=== PATIENT | female | born 1965 | race Caucasian/White ===

== ENCOUNTER 2016-10-21 06:41 | Day surgery (SDC) | payer SELFPAY ==
[2016-10-03 18:08] VITALS: BMI 26.6
[2016-10-21] MEDS ORDERED: BUPIVACAINE HCL/PF 2.5 MG/ML - 30 ML VIAL IJ ONE (07:12)
[2016-10-21] MEDS ORDERED: LIDOCAINE HCL 1%, 10 MG/ML (20ML VIAL) ONE (07:12)
[2016-10-21] MEDS ORDERED: ROCURONIUM BROMIDE 50 MG/5 ML VIAL ONE (07:32)
[2016-10-21] MEDS ORDERED: PROPOFOL 20 ML ONE ×10 (07:32→11:00)
[2016-10-21] MEDS ORDERED: MIDAZOLAM HCL 2 MG/2 ML SINGLE DOSE VIAL ONE ×2 (07:32→09:10)
[2016-10-21] MEDS ORDERED: LIDOCAINE HCL/PF 2% SDV 5ML VIAL ONE (07:33)
[2016-10-21 08:00] LABS: INR 1.02 (0.82-1.09); PROTHROMBIN TIME (PATIENT) 11.4 SEC (10.2-13.0)
[2016-10-21] MEDS ORDERED: DEXAMETHASONE SOD PHOSPHATE 4 MG/1 ML VIAL ONE (08:01)
[2016-10-21] MEDS ORDERED: ONDANSETRON 4 MG/2 ML VIAL ONE (08:01)
[2016-10-21] MEDS ORDERED: HEPARIN NA (PORCINE) 5,000 UNITS/ML 1ML VIAL ONE (08:19)
[2016-10-21] MEDS ORDERED: HEPARIN NA (PORCINE) 5,000 UNITS/ML 1ML VIAL SQ ONE (08:22)
[2016-10-21] MEDS ORDERED: ceFAZolin SODIUM 1 GM VIAL ONE ×2 (08:22→08:23)
[2016-10-21] MEDS ORDERED: KETAMINE HCL 200 MG/20 ML VIAL ONE (09:00)
[2016-10-21] MEDS ORDERED: NITROGLYCERIN 2% OINTMENT - 1GM PACKET TD ONE (11:06)
[2016-10-21] MEDS ORDERED: morphine CARPU-JECT 10 MG/1 ML DISP.SYRIN IVPUSH PRN (11:33)
[2016-10-21] MEDS ORDERED: ONDANSETRON 4 MG/2 ML VIAL IVPB PRN (11:33)
[2016-10-21] MEDS ORDERED: PROMETHAZINE HCL 25 MG/1 ML VIAL IVPUSH PRN (11:36)
[2016-10-21] MEDS ORDERED: HYDROmorphone HCL CARPU-JECT 1 MG/1 ML DISP.SYRIN IVPUSH PRN (11:36)
[2016-10-21] MEDS ORDERED: HYDROmorphone HCL CARPU-JECT 1 MG/1 ML DISP.SYRIN IVPUSH ONE ×3 (11:39→12:10)
--- NOTE | 2016-10-21 11:39 | OP ---
Operative Note - Note: Operative Date: 10/21/16 Pre-Operative Diagnosis: lipodystrophy Operation: mini-abdominoplasty with abdominal liposuction Findings: none Implants: none Post-Operative Diagnosis: Same as Pre-op Surgeon: Jona Estes Anesthesia: General Specimens Removed: fat and skin Estimated Blood Loss (mls): 200 Drains & Tubes with Location: TIERA x 1 Operative Report Dictated: Yes
[2016-10-21] MEDS ORDERED: LACTATED RINGERS SOLUTION 1,000 ML IV SCH ×3 (11:45→19:30)
[2016-10-21] MEDS ORDERED: HYDROmorphone HCL CARPU-JECT 1 MG/1 ML DISP.SYRIN ONE (12:12)
[2016-10-21] MEDS ORDERED: morphine CARPU-JECT 4 MG/1 ML DISP.SYRIN IVPUSH PRN (12:12)
[2016-10-21 15:40] LABS: MCH 29.9 pg (25.7-33.7); MCHC 34.4 g/dl (32.0-36.0); MEAN PLT VOLUME 7.9 fl (7.5-11.1); PLATELET COUNT 202 K/MM3 (134-434); WHITE BLOOD COUNT 10.8 K/mm3 (4.0-10.8)
--- NOTE | 2016-10-21 16:33 | ED.PROV ---
Physicial Exam I saw and examined the patient. - Vital Signs Last Vital Signs Temp Pulse Resp BP Pulse Ox 98.1 F 80 16 126/66 97 10/21/16 16:21 10/21/16 16:21 10/21/16 16:21 10/21/16 16:21 10/21/16 15:30 10/21/16 16:30 - Physical Exam Reason for Response: 10/21/16 16:30 51 yo F s/p abdominoplasty and lipsuction, few hours post op, had near syncopal vagal episode after getting [facility] to go to the bathroom. pt becam pale , lightheaded, was lied back into bed rapid response called. on my arrival. pt was awake, alert lying in bed talking. no acute distress, moveing all ext. General Appearance: Yes: Nourished, Age Appropriate HEENT: positive: Normal Voice Vascular Pulses: Dorsalis-Pedis (R): 2+, Doralis-Pedis (L): 2+ Musculoskeletal: positive: Normal Inspection Extremity: positive: Normal Capillary Refill Integumentary: positive: Normal Color, Dry, Warm, Other (bandages post op in place, not removed.) Neurologic: positive: Fully Oriented, Alert, Normal Mood/Affect, Other (moving all four ext.) Critical Care Time/MDM Note - Medical Decision Making Note: 10/21/16 16:32 51 s/p abdminoplasty with vagal espisode now awake and alert post lying down. plan hydration. will update dr. winchester. iv hydration. likley secondary to preop dehydration. vitals normallizing. dr winchester informed, will return to evaluate pt later today.
[2016-10-21] MEDS: oxyCODONE HCL 5 MG TABLET PO PRN ×2 (17:36→21:48)
[2016-10-21] MEDS: CEFAZOLIN 1 GM/D5W 50 ML IVPB SCH (17:37)
[2016-10-21] MEDS ORDERED: SODIUM CHLORIDE 1,000 ML IV SCH ×2 (19:00→19:23)
--- NOTE | 2016-10-21 19:35 | PN ---
Progress Note (short form) - Note Progress Note: Post op check, Had a faint episode while standing earlier. Evaluated by ER MD diagnosed as vagal episode. Urinating, ambulating, SCD's on and using IS. Patient is afebrile without tachycardia or hypotension. Exam: no hematoma or palpable or visual collection. Dressings are all dry and clean, no visible bruising. TIERA output has been about 100/hour of red liquid slightly thinner than blood. All tissues are pink and viable, non-tense. Patient appears non-toxic with good color, comfortable. HCT 35 Assessment: I do expect very high drainage given the amount of liposuction. Thee is not clinically an active bleed as this would not be entirely drained by the TIERA and would leave some clinical evidence on exam. Due to high TIERA output, however, we will type and screen, and keep NPO for OR if needed should drainage increase or other evidence of bleeding presents. new HCT now and in AM. Bolus saline and maintain on 125 LR overnight. OOB ambulate with assistance.
[2016-10-21 20:05] LABS: MCH 31.8 pg (25.7-33.7); MCHC 35.6 g/dl (32.0-36.0); MEAN CELL VOLUME 89.3 fl (80-96); MEAN PLT VOLUME 8.1 fl (7.5-11.1); PLATELET COUNT 207 K/MM3 (134-434); RDW 11.7 % (11.6-15.6); WHITE BLOOD COUNT 10.7 K/mm3 (4.0-10.8)
[2016-10-21 20:22] LABS: ANION GAP 7 (8-16); CALCIUM 8.3 mg/dl (8.4-10.2); CO2 24 mmol/L (22-28); COCKROFT - GAULT NT; CREATININE 0.7 mg/dl (0.6-1.3); GLUCOSE,RANDOM 178 mg/dl (74-106)
[2016-10-22] MEDS: CEFAZOLIN 1 GM/D5W 50 ML IVPB SCH (01:37)
[2016-10-22 03:53] LABS: MCH 30.3 pg (25.7-33.7); MCHC 33.3 g/dl (32.0-36.0); MEAN CELL VOLUME 91.1 fl (80-96); MEAN PLT VOLUME 8.1 fl (7.5-11.1); PLATELET COUNT 186 K/MM3 (134-434); RDW 12.6 % (11.6-15.6); WHITE BLOOD COUNT 6.3 K/mm3 (4.0-10.0)
[2016-10-22 04:28] LABS: COCKROFT - GAULT 130.441; CREATININE 0.6 mg/dL (0.55-1.02)
[2016-10-22] MEDS: oxyCODONE HCL 5 MG TABLET PO PRN (06:18)
[2016-10-22 06:45] VITALS: BP 119/64; PULSE 91; TEMP 98.6
--- NOTE | 2016-10-22 07:22 | PN ---
Progress Note (short form) - Note Progress Note: Re-evaluated this morning, Subjectively feels good, no pain lightheadedness, weakness. Ambulating, urinating VSS AF, no tachycardia Exam without collection or bleed. abdomen soft and all tissues viable HCT stable, changes are c/w expected dilution along with similar dilution of all other elements of cbc. TIERA output lowered to 60 overnight, now thin serosanguinous OK to feed and discharge in the care of who is a surgeon. All instructions reviewed and pt to start iron. f/u 5 days or sooner PRN.
[2016-10-22] MEDS ORDERED: HEPARIN NA (PORCINE) 5,000 UNITS/ML 1ML VIAL SQ SCH (08:00)
--- NOTE | 2016-10-22 08:29 | PATH ---
Surgical Pathology Report Patient Name: EZRA MENDEZ Med. Rec. #: [id number] /Age/Gender: 1965 (Age: 51) / F Account: [id number] Location: ON LICENSE OF [facility] MED-SURG Taken: 10/21/2016 Received: 10/21/2016 Reported: 10/22/2016 Physicians: Jona Estes Specimen(s) Received ABDOMINAL SKIN AND TISSUE Clinical History Cosmetic Final Diagnosis SKIN AND SOFT TISSUE, ABDOMEN, ABDOMINOPLASTY: UNREMARKABLE SKIN AND SUBCUTANEOUS ADIPOSE TISSUE (GROSS ONLY). Electronically Signed Amador Kwok M.D. Gross Description Received in formalin labeled "abdominal skin and tissue," is an 887 g, 31.0 x 17.5 x 3.0 cm aggregate of 2 martell, triangular, unremarkable portions of skin with underlying soft tissue. No discrete lesions are identified. No sections are submitted, gross only. /10/21/2016 saudi/10/21/2016
--- NOTE | 2016-10-22 10:42 | OP ---
DATE OF OPERATION: 10/21/2016 ATTENDING SURGEON: Jona Estes MD TITLE OF PROCEDURE: Mini abdominoplasty with abdominal and flank liposuction. PREOPERATIVE DIAGNOSIS: Lipodystrophy to the abdomen. POSTOPERATIVE DIAGNOSIS: Lipodystrophy to the abdomen. DESCRIPTION OF PROCEDURE: The patient was marked in the holding area, awake and aware of incisions and resulting scars. Risks, benefits, and alternatives of the procedure including tissue/skin loss were discussed, and patient understands and agrees to proceed. Then, 5000 units of subcutaneous heparin were given. Sequential compression stockings with ANNA MARIE hose were applied. She was then brought to the operating room, placed in the supine position. Position was carefully checked by surgical and anesthesia teams. All appropriate padding devices were used. Sequential compression stockings were turned on. A pillow was placed below the knees. She was then given 2 g of Ancef preoperatively, prepped and draped in standard surgical fashion. A time-out was called. Patient, procedure, incision sites were verified. Infiltration was begun. The wetting solution in this case was for the first 2 L, 1 L of normal saline, 1 ampule 1:1000 epinephrine and 20 mL of 1% lidocaine plain for the second 2 L, it is 1 L of normal saline and 1 ampule epinephrine alone. This was infiltrated slowly over the course of 15 minutes to the areas of prepared plan for liposuction, which were the bilateral flanks and abdomen excluding the region of the lower abdomen, which was intended to be removed. That region in the lower abdomen was used for access to the liposuction. A full 20 minutes was awaited prior to attempting liposuction. At this point, the inferior border of the resection pattern was then incised, and dissection carried down to the level of the loose areolar plane superficial to the abdominal wall fascia. Dissection was continued along the abdominal wall fascia for only several centimeters, where then, discontinuous undermining was then performed. Hemostasis was meticulously achieved. After which, the skin was then tailor-tacked with gen. Attention was directed towards liposuction. Liposuction was performed in a deep plane with a 5-mm cannula and a more superficial plane with a 4-mm cannula. Liposuction was performed in the SAFE technique with pre- and post-tunneling. After pre-tunneling, liposuction was performed. The total lipoaspirate for the case was 4400 mL. The specific areas of lipoaspiration were 850 mL off of the left flank, 950 mL off of the right flank, 1300 mL off of the left side of the abdomen, and 1300 mL off of the right side of the abdomen. The weight of the skin resection is 840 g. After conclusion of liposuction, the end-point was the appearance of bloody fluid within the solution and smooth even contour being achieved. At this point, attention was redirected towards the abdominoplasty where a small tunnel was created to provide a release of the base of the umbilicus for repositioning. Once this was performed, the loose excess skin and fat was marked for excision. Excision was then performed demonstrating good bleeding at the dermal edges. Hemostasis was meticulously achieved at the mini abdominoplasty site. The umbilicus was tacked to a new position on the abdominal wall, which was roughly 1.5 cm inferior to its preoperative position. This was done with two separate 3-0 PDS sutures. Size 10 flat TIERA drain was brought out through the right extent of the incision. The Scarpas layer fascia was then closed with a series of interrupted buried 2-0 Vicryl sutures. Skin was then closed with a series of interrupted buried deep dermal 3-0 Monocryl sutures followed by running subcuticular 3-0 Monocryl sutures. Several 5-0 nylon sutures were placed to perfect the skin closure. Bacitracin, Xeroform were placed on the wounds with a folded Xeroform within the newly positioned umbilicus. Drains placed to bulb suction and secured with a 3-0 silk drain suture. The patient was dressed with 4x4s, ABD gauze and an abdominal binder. She was maintained in a 30-degree flexed position, transferred to her bed and to the recovery room without complication. Kin [id number]
== END 2016-10-22 09:45 | disposition home or self-care (01) ==
LOC: FASU 06:41 → FM/S 13:05 → FASU 10-22 09:45
PROVIDERS: ATTEND Plastic Surgery
PROC: 0J083ZZ Alteration of Abdomen Subcutaneous Tissue and Fascia, Percutaneous Approach (ICD-10-PCS; 2016-10-21)
PROC: 0J080ZZ Alteration of Abdomen Subcutaneous Tissue and Fascia, Open Approach (ICD-10-PCS; principal; 2016-10-21 08:34)
DX: E88.1 Lipodystrophy, not elsewhere classified (principal)
CPT/HCPCS: 36415; 80048; 85027; 85610; 85730; 86850; 86900; 86901; 88300-TC; 94010; 94760; J1644